=== PATIENT | female | born 1990 | race African-American/Black ===

== ENCOUNTER 2020-02-29 22:16 | Emergency (ER) | payer OTHER ==
[~2020-02-29] VITALS: Ht 165.1 cm; Wt 51.3 kg
[~2020-02-29 22:16] MED LIST: CIPROFLOXACIN500 M2 ORAL; METRONIDAZOLE500 MG ORAL; NKM; NORCO 5-325 TA1 EACH ORAL; RANITIDINE HCL150 MG ORAL
[2020-02-29 22:34] VITALS: BP 103/69
--- NOTE | 2020-02-29 22:34 | NUR ---
ED Nurse Note: urine cpesimen collected sent to lab
--- NOTE | 2020-02-29 22:36 | NUR ---
ED Nurse Note: Patient walked in to ER reports 6/10 aching pain on L lower side radiating to lower back, denies fevers or any changes with urination since Friday. Patient presented calm, AAO x4, VSS at this time.
[2020-02-29 22:39] LABS: APPEARANCE,URINE SLIGHTLY CLOUDY; BILIRUBIN, URINE NEGATIVE (NEGATIVE); GLUCOSE, URINE (UA) NEGATIVE (NEGATIVE); KETONES,URINE 4+ (NEGATIVE); LEUKOCYTE ESTERASE ,URINE 1+ (NEGATIVE); NITRITE,URINE NEGATIVE (NEGATIVE); PH,URINE 5 (4.5-8.0); PROTEIN,URINE 2+ (NEGATIVE); UROBILINOGEN,URINE 1 MG/DL (0.0-1.0)
[2020-02-29 22:44] LABS: COLOR,URINE YELLOW
--- NOTE | 2020-02-29 22:46 | Emergency Room Report ---
History of Present Illness General Chief Complaint: Abdominal Pain Source: Patient Present Illness HPI Disclaimer: Please note that this report is being documented using DRAGON technology. This can lead to erroneous entry secondary to incorrect interpretation by the dictating instrument. HPI: 29-year-old female presents for evaluation of left flank pain. Symptoms present 2 days. She notes a constant aching in the left side radiating down the left lower abdomen. Denies trauma. She states she was drinking a lot of alcohol 2 days ago with symptom onset. Denies fever chills, dysuria, hematuria , diarrhea. Reports some nausea and one episode of vomiting earlier today but attributes it to food she was eating. No known sick contacts. Prior history of UTI. Denies history of kidney stones. Denies vaginal bleeding or vaginal discharge. PMH: Denies PSH: Denies Allergies: Denies Social Hx: Social alcohol use Allergies: Coded Allergies: No Known Allergies (Unverified , 10/19/14) COVID-19 Screening Contact w/high risk pt: No Recent Travel to affected area: No Experienced COVID-19 symptoms?: No Patient History Last Menstrual Period: 10/27/19 depo shot Now: No Nursing Documentation-PMH Past Medical History: No Stated History Review of Systems All Other Systems: negative except mentioned in HPI Physical Exam Vital Signs Date Time Temp Pulse Resp B/P (MAP) Pulse Ox O2 Delivery O2 Flow Rate FiO2 02/29/20 22:19 99.3 115 22 103/69 (80) 97 Room Air General: Awake and alert, no acute distress HEENT: NC/AT. EOMI. Resp: Normal work of breathing Abdomen: Soft, nontender, nondistended, no rebound, no masses. Skin: Intact. No abrasions, laceration or rash over the exposed skin MSK: Normal tone and bulk. Moving all extremities. No obvious deformity. Neuro: Awake and alert. Mentating appropriately Back: Left-sided CVA tenderness, negative on right Medical Decision Making Diagnostic Impression: Primary Impression: Kidney stone Additional Impression: UTI (urinary tract infection) ER Course Is a 29-year-old female presenting for evaluation of left-sided flank pain. Differential includes was not limited to UTI, pyelonephritis, nephrolithiasis, diverticulitis, pancreatitis, gastritis, hepatitis, cholecystitis, bowel obstruction, gas, viral syndrome, food poisoning to name a few. Urinalysis and hCG were obtained on patient arrival which showed microscopic blood and 1+ leukocyte Estrace though moderate bacteria. Noncontrast CT scan was obtained and basic labs. Labs including lipase and renal function largely within normal limits and CT scan suggestive of a recently passed stone.We will start the patient on antibiotics and treat conservatively for nephrolithiasis. She is well-appearing stable for outpatient follow-up. Discussed reasons to return to the emergency department. She understands and agrees with treatment plan. Laboratory Tests Test 02/29/20 22:30 02/29/20 23:08 Urine Color Yellow Urine Appearance Slightly cloudy Urine pH 5 (4.5-8.0) Urine Specific Dawn 1.020 (1.005-1.035) Urine Protein 2+ (NEGATIVE) H Urine Glucose (UA) Negative (NEGATIVE) Urine Ketones 4+ (NEGATIVE) H Urine Blood 5+ (NEGATIVE) H Urine Nitrite Negative (NEGATIVE) Urine Bilirubin Negative (NEGATIVE) Urine Urobilinogen 1 MG/DL (0.0-1.0) H Urine Leukocyte Esterase 1+ (NEGATIVE) H Urine RBC Tntc /HPF (0 - 2) H Urine WBC 2-4 /HPF (0 - 2) Urine Squamous Epithelial Cells Moderate /LPF (NONE/OCC) H Urine Bacteria Moderate /HPF (NONE) H Urine HCG, Qualitative Negative (NEGATIVE) White Blood Count 14.3 K/UL (4.8-10.8) H Red Blood Count 4.29 M/UL (4.20-5.40) Hemoglobin 14.8 G/DL (12.0-16.0) Hematocrit 43.9 % (37.0-47.0) Mean Corpuscular Volume 102 FL (80-99) H Mean Corpuscular Hemoglobin 34.6 PG (27.0-31.0) H Mean Corpuscular Hemoglobin Concent 33.8 G/DL (32.0-36.0) Red Cell Distribution Width 12.8 % (11.6-14.8) Platelet Count 168 K/UL (150-450) Mean Platelet Volume 6.8 FL (6.5-10.1) Neutrophils (%) (Auto) 83.0 % (45.0-75.0) H Lymphocytes (%) (Auto) 6.0 % (20.0-45.0) L Monocytes (%) (Auto) 10.2 % (1.0-10.0) H Eosinophils (%) (Auto) 0.0 % (0.0-3.0) Basophils (%) (Auto) 0.8 % (0.0-2.0) Sodium Level 135 MMOL/L (136-145) L Potassium Level 4.0 MMOL/L (3.5-5.1) Chloride Level 97 MMOL/L (98-107) L Carbon Dioxide Level 21 MMOL/L (21-32) Anion Gap 17 mmol/L (5-15) H Blood Urea Nitrogen 10 mg/dL (7-18) Creatinine 1.1 MG/DL (0.55-1.30) Estimated Glomerular Filtration Rate > 60 mL/min (>60) Glucose Level 84 MG/DL (74-106) Calcium Level 9.5 MG/DL (8.5-10.1) Total Bilirubin 0.6 MG/DL (0.2-1.0) Aspartate Amino Transferase (AST) 18 U/L (15-37) Alanine Aminotransferase (ALT) 19 U/L (12-78) Alkaline Phosphatase 46 U/L (46-116) Total Protein 8.5 G/DL (6.4-8.2) H Albumin 4.0 G/DL (3.4-5.0) Globulin 4.5 g/dL Albumin/Globulin Ratio 0.9 (1.0-2.7) L Lipase 69 U/L (73-393) L CT/MRI/US Diagnostic Results CT/MRI/US Diagnostic Results : Impression Final Report EXAM: CT Abdomen and Pelvis Without Intravenous Contrast CLINICAL HISTORY: ABD PAIN TECHNIQUE: Axial computed tomography images of the abdomen and pelvis without intravenous contrast. CTDI is 3.1 mGy and DLP is 153.9 mGy-cm. One or more of the following dose reduction techniques were used: automated exposure control, adjustment of the mA and/or kV according to patient size, use of iterative reconstruction technique. COMPARISON: No relevant prior studies available. FINDINGS: Lung bases: Unremarkable. ABDOMEN: Liver: Unremarkable Gallbladder and bile ducts: No calcified stones. No ductal dilation. Pancreas: Unremarkable. Spleen: Unremarkable. Adrenals: Unremarkable. Kidneys and ureters: Query mild left perinephric edema. No hydronephrosis or ureteral stone. Stomach and bowel: No darion mural thickening. Nonobstructive bowel gas pattern. PELVIS: Appendix: No findings to suggest acute appendicitis. Bladder: Bladder is underdistended and not well assessed. Reproductive: Unremarkable. ABDOMEN and PELVIS: Intraperitoneal space: Trace fluid in the pelvis. Bones/joints: No acute fracture. Soft tissues: Unremarkable. Vasculature: Unremarkable. No abdominal aortic aneurysm. Lymph nodes: No enlarged lymph nodes. IMPRESSION: Query mild left perinephric edema. No hydronephrosis or ureteral stone. Findings may be artifactual or may be on the basis of a passed stone or infection in the appropriate clinical setting. Radiologist: Ron Sandoval M.D. Electronically Signed: 02/29/20 23:12 Study ready at 23:06 and initial results transmitted at 23:12 Last Vital Signs Date Time Temp Pulse Resp B/P (MAP) Pulse Ox O2 Delivery O2 Flow Rate FiO2 02/29/20 22:34 99.3 22 103/69 97 Room Air 02/29/20 22:34 115 Disposition: HOME, SELF-CARE Condition: Stable Scripts Ibuprofen* (MOTRIN*) 600 Mg Tablet 600 MG ORAL Q6H PRN for For Pain, #30 TAB 0 Refills Prov: Nico Cuevas MD 02/29/20 Ondansetron Odt* (ZOFRAN ODT*) 4 Mg Tab.rapdis 4 MG BC EVERY 6 HOURS PRN for Nausea & Vomiting, #10 TAB 0 Refills Prov: Nico Cuevas MD 02/29/20 Trimethoprim/Sulfamethoxazole 160/800* (BACTRIM DS TABLET*) 1 Each Tablet 1 TAB ORAL Q12H for 5 Days, #10 TAB 0 Refills Prov: Nico Cuevas MD 02/29/20 Nico Cuevas MD February 29, 2020 22:46
--- NOTE | 2020-02-29 22:56 | NUR ---
ED Nurse Note: pt to CT
[2020-02-29] MEDS ORDERED: Ketorolac 30mg Inj IV ONE (23:00)
--- NOTE | 2020-02-29 23:02 | NUR ---
ED Nurse Note: Pt back from CT
--- NOTE | 2020-02-29 23:13 | Diagnostic Imaging Report ---
EXAM: CT Abdomen and Pelvis Without Intravenous Contrast CLINICAL HISTORY: ABD PAIN TECHNIQUE: Axial computed tomography images of the abdomen and pelvis without intravenous contrast. CTDI is 3.1 mGy and DLP is 153.9 mGy-cm. One or more of the following dose reduction techniques were used: automated exposure control, adjustment of the mA and/or kV according to patient size, use of iterative reconstruction technique. COMPARISON: No relevant prior studies available. FINDINGS: Lung bases: Unremarkable. ABDOMEN: Liver: Unremarkable Gallbladder and bile ducts: No calcified stones. No ductal dilation. Pancreas: Unremarkable. Spleen: Unremarkable. Adrenals: Unremarkable. Kidneys and ureters: Query mild left perinephric edema. No hydronephrosis or ureteral stone. Stomach and bowel: No darion mural thickening. Nonobstructive bowel gas pattern. PELVIS: Appendix: No findings to suggest acute appendicitis. Bladder: Bladder is underdistended and not well assessed. Reproductive: Unremarkable. ABDOMEN and PELVIS: Intraperitoneal space: Trace fluid in the pelvis. Bones/joints: No acute fracture. Soft tissues: Unremarkable. Vasculature: Unremarkable. No abdominal aortic aneurysm. Lymph nodes: No enlarged lymph nodes. IMPRESSION: Query mild left perinephric edema. No hydronephrosis or ureteral stone. Findings may be artifactual or may be on the basis of a passed stone or infection in the appropriate clinical setting.
[2020-02-29] MEDS ORDERED: ONDANSETRON ODT4 MG BC (23:22)
[2020-02-29] MEDS ORDERED: IBUPROFEN600 M1 ORAL (23:22)
[2020-02-29] MEDS ORDERED: BACTRIM DS TAB1 EAC1 ORAL (23:22)
[2020-02-29 23:35] LABS: BASOPHILS % (AUTO) 0.8 % (0.0-2.0); HEMATOCRIT 43.9 % (37.0-47.0); HEMOGLOBIN 14.8 G/DL (12.0-16.0); MEAN CORPUSCULAR VOLUME 102 FL (80-99); MONOCYTES % (AUTO) 10.2 % (1.0-10.0); PLATELET COUNT 168 K/UL (150-450); RED BLOOD COUNT 4.29 M/UL (4.20-5.40); RED CELL DISTRIBUTION WIDTH 12.8 % (11.6-14.8); WHITE BLOOD COUNT 14.3 K/UL (4.8-10.8)
[2020-02-29 23:47] LABS: ANION GAP 17 mmol/L (5-15); BLOOD UREA NITROGEN 10 mg/dL (7-18); CALCIUM 9.5 MG/DL (8.5-10.1); CARBON DIOXIDE 21 MMOL/L (21-32); CHLORIDE 97 MMOL/L (98-107); CREATININE 1.1 MG/DL (0.55-1.30); SODIUM 135 MMOL/L (136-145)
[2020-02-29 23:52] LABS: ALANINE AMINOTRANSFERASE 19 U/L (12-78); ALBUMIN/GLOBULIN RATIO 0.9 (1.0-2.7); ALKALINE PHOSPHATASE 46 U/L (46-116); ASPARTATE AMINO TRANSFERASE 18 U/L (15-37); BILIRUBIN,TOTAL 0.6 MG/DL (0.2-1.0)
[2020-03-01] VITALS: BP 111/67
--- NOTE | 2020-03-01 00:06 | NUR ---
ER DISCHARGE NOTE: Patient is cleared to be discharged per ERMD, pt is aox4, on room air, with stable vital signs. pt was given dc and prescription instructions, pt was able to verbalize understanding, pt id band and iv site removed without complications. pt is able to ambulate with steady gait. pt took all belongings.
== END 2020-03-01 00:06 | disposition home or self-care (01) ==
LOC: EMR 23:06
DX: N20.0 Calculus of kidney (principal); N39.0 Urinary tract infection, site not specified; R60.0 Localized edema
CPT/HCPCS: 36415; 74176; 80053; 81003; 81025; 83690; 85025; 87086; 96361; 96374; J1885; J7030; Z7502; 99284

== ENCOUNTER 2020-10-02 11:16 | Emergency (ER) | payer OTHER ==
[~2020-10-02] VITALS: Ht 167.6 cm; Wt 51.7 kg
[~2020-10-02 11:16] MED LIST changes: +BACTRIM DS TAB1 EAC1 ORAL; +IBUPROFEN600 M1 ORAL; +ONDANSETRON ODT4 MG BC
[2020-10-02 11:59] VITALS: BP 115/61
--- NOTE | 2020-10-02 12:01 | NUR ---
ED Nurse Note:pt. c/o headache , VSS, no fever
[2020-10-02] MEDS ORDERED: LIDODERM700 M1 TOPIC (12:17)
[2020-10-02] MEDS ORDERED: ROBAXIN-750750 MG PO (12:17)
[2020-10-02] MEDS ORDERED: IBUPROFEN600 M1 ORAL (12:17)
--- NOTE | 2020-10-02 12:18 | Emergency Room Report ---
History of Present Illness General Chief Complaint: Headache Source: Patient Present Illness HPI Disclaimer: Please note that this report is being documented using [employer] technology. This can lead to erroneous entry secondary to incorrect interpretation by the dictating instrument. HPI: Otherwise healthy 30-year-old female presents for evaluation of neck pain and headache. Symptoms present 3 days. She states she woke up with a kink in her neck on the left side and today developed a headache over the occiput. Denies trauma. Worse with bending and twisting neck motion. Denies fever, chills, nausea, vomiting, ear pain, tinnitus, changes in hearing, ear drainage. Has been using Tylenol intermittently. PMH: Denied PSH: Denied Allergies: Denied Social Hx: Denied Allergies: Coded Allergies: No Known Allergies (Unverified , 10/19/14) COVID-19 Screening Contact w/high risk pt: No Recent Travel to affected area: No Experienced COVID-19 symptoms?: No COVID-19 Testing performed DRIVER/GUIDE: No Patient History Now: No Nursing Documentation-PMH Past Medical History: No Stated History Review of Systems All Other Systems: negative except mentioned in HPI Physical Exam Vital Signs Date Time Temp Pulse Resp B/P (MAP) Pulse Ox O2 Delivery O2 Flow Rate FiO2 10/02/20 11:16 98.2 82 18 115/61 (79) 99 Room Air General: Awake and alert, no acute distress HEENT: NC/AT. EOMI. PERRLA. No facial edema or tenderness. No mastoid tenderness. Tympanic members are pearly marrero, nonbulging, nonerythematous. No tenderness edema or erythema over the mastoids. No rash over the scalp or neck. Cardiovascular: RRR. S1 and S2 normal. No murmur appreciated Resp: Normal work of breathing. Skin: Intact. No abrasions, laceration or rash over the exposed skin MSK: Normal tone and bulk. Moving all extremities. No obvious deformity. Neuro: Awake and alert. Mentating appropriately. Spine: No tenderness in the midline of the cervical or upper thoracic spine. No step-off or deformity. There is right-sided paraspinal tenderness extending over the left trapezius. Medical Decision Making Diagnostic Impression: Primary Impression: Muscle strain Additional Impression: Headache ER Course Is a 30-year-old female presenting for evaluation of neck pain and headache. Patient symptoms and physical exam are most consistent with paraspinal muscle spasm and trapezius strain on the left side causing generalized headache. Also considered migraine headache, cluster headache, mastoiditis, otitis media however clinically the patient does not appear to be suffering from any of these etiologies. No red flag symptoms of headache. There is no evidence of mastoid tenderness, swelling in the external and middle ear exam appear unremarkable. Do not believe she requires emergent labs or imaging at this time. We will continue with NSAIDs were also prescribed Robaxin and lidocaine patch for muscle spasm. Instructed to return with new or worsening symptoms. Last Vital Signs Date Time Temp Pulse Resp B/P (MAP) Pulse Ox O2 Delivery O2 Flow Rate FiO2 10/02/20 11:59 98.2 68 18 115/61 99 Room Air Disposition: HOME, SELF-CARE Condition: Stable Scripts Lidocaine Patch* (Lidoderm Patch*) 1 Each Adh..patch 1 PATCH TOPIC DAILY, #7 PATCH 0 Refills Patch(es) may remain in place for up to 12 hours in any 24-hour period. Prov: Nico Cuevas MD 10/02/20 Methocarbamol* (ROBAXIN-750*) 750 Mg Tablet 750 MG PO QID, #28 TAB 0 Refills Prov: Nico Cuevas MD 10/02/20 Ibuprofen* (MOTRIN*) 600 Mg Tablet 600 MG ORAL Q6H PRN for For Pain, #30 TAB 0 Refills Prov: Nico Cuevas MD 10/02/20 Patient Instructions: Head Injury, Adult Additional Instructions: Please follow-up with your primary care doctor in the next 1 to 3 days to discuss this emergency department visit and for reevaluation. If you have any new or worsening symptoms please return to the emergency department for reevaluation. Please note that this report is being documented using [employer] technology. This can lead to erroneous entry secondary to incorrect interpretation by the dictating instrument. Nico Cuevas MD Oct 02, 2020 12:18
[2020-10-02 12:25] VITALS: BP 115/61
--- NOTE | 2020-10-02 12:25 | NUR ---
ED Nurse Note: Pt cleared by health care Provider for discharge. DC instructions/prescription was given and explained to pt and verbalized understanding of teachings. All medical deviecs such as ID band removed. Pt is AAO x4, ambulatory and left with all personal belongings.
== END 2020-10-02 12:25 | disposition home or self-care (01) ==
LOC: EMR 11:53
DX: T14.8XXA Other injury of unspecified body region, initial encounter (principal); R51.9 Headache, unspecified; X58.XXXA Exposure to other specified factors, initial encounter; Y92.9 Unspecified place or not applicable
CPT/HCPCS: 99282